=== PATIENT | male | born 2005 | race Two or more races ===

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

== ENCOUNTER 2025-08-03 11:31 | Emergency (ER) | payer MEDICAID, OTHER ==
[~2025-08-03] VITALS: Ht 165.1 cm; Wt 65.0 kg
[2025-08-03 11:42] VITALS: TEMP 97.9
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
[2025-08-03 13:49] VITALS: BP 125/82; PULSE 74; RESP 18; O2SAT 97
--- NOTE | 2025-08-03 13:53 | DVH ---
CLINICAL INDICATION: trauma TECHNIQUE: 3 views of the left elbow. Comparison: L ELBOW COMPLETE XRAY on DOS: 01/20/21, L FOREARM XRAY on DOS: 01/20/21 FINDINGS/IMPRESSION: There is no evidence of acute fracture or dislocation. Surgical fixation hardware is seen in the proximal radius without evidence of hardware complication. Soft tissues are unremarkable.
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
== END 2025-08-03 17:41 | disposition home or self-care (01) ==
LOC: ER 11:31
DX: S02.2XXA Fracture of nasal bones, initial encounter for closed fracture (principal); S50.02XA Contusion of left elbow, initial encounter; Y08.89XA Assault by other specified means, initial encounter; Y93.89 Activity, other specified; Y92.89 Other specified places as the place of occurrence of the external cause; Y99.8 Other external cause status
CPT/HCPCS: 70486; 73070